=== PATIENT | female | born 1990 | race Two or more races ===

== ENCOUNTER → 2016-06-21 | Outpatient (CLI) | payer OTHER | LOC: CLAB 10:43 | PROVIDERS: ATTEND Obstetrics & Gynecology | DX: O36.0120 Maternal care for anti-D [Rh] antibodies, second trimester, not applicable or unspecified (principal); Z3A.24 24 weeks gestation of pregnancy | CPT/HCPCS: 36415; 86850; 86900; 86901; 96372; J2790; 90384 ==